=== PATIENT | female | born 1935 | race Caucasian/White ===

== ENCOUNTER → 2017-02-04 | Outpatient (CLI) | payer OTHER, BC | LOC: CIMAGING 14:03 | DX: Z12.31 Encounter for screening mammogram for malignant neoplasm of breast (principal) | CPT/HCPCS: G0202 ==

== ENCOUNTER → 2017-05-30 | Day surgery (SDC) | payer OTHER, BC | END | disposition home or self-care (01) | LOC: FIMAGING 10:45 | PROVIDERS: ATTEND Radiology Diagnostic Radiology | PROC: 02HV33Z Insertion of Infusion Device into Superior Vena Cava, Percutaneous Approach (ICD-10-PCS; principal; 2017-05-30) | DX: N39.0 Urinary tract infection, site not specified (principal); Z79.2 Long term (current) use of antibiotics; A49.9 Bacterial infection, unspecified; Z16.12 Extended spectrum beta lactamase (ESBL) resistance | CPT/HCPCS: 36569; 77001; C1751 ==

== ENCOUNTER 2017-10-02 08:12 | Day surgery (SDC) | payer OTHER, BC ==
[2017-10-02] MEDS ORDERED: DIAZEPAM 5 MG TAB PO ONE (08:13)
[2017-10-02] MEDS ORDERED: NS 1,000 ML IV ONE (08:13)
[2017-10-02] MEDS ORDERED: methylPREDNISolone SOD SUCC 125 MG/2 ML VIAL IVP ONE (08:13)
[2017-10-02] MEDS ORDERED: FAMOTIDINE 20 MG/NACL 50 ML IV ONE (08:13)
[2017-10-02] MEDS ORDERED: ASPIRIN EC 325 MG TAB PO ONE ×2 (08:13→08:18)
[2017-10-02] MEDS ORDERED: EPINEPHrine 1 MG/10 ML SYR IVP ONE (08:16)
[2017-10-02] MEDS ORDERED: methylPREDNISolone SOD SUCC 125 MG/2 ML VIAL ONE (08:16)
[2017-10-02] MEDS ORDERED: FAMOTIDINE 20 MG/NACL/50 ML BAG IV ONE (08:17)
[2017-10-02] MEDS ORDERED: DIAZEPAM 5 MG TAB ONE (08:18)
--- NOTE | 2017-10-02 08:57 | CPEKG ---
Heart Rate: 73 RR Interval: 822 P-R Interval: 196 QRSD Interval: 94 QT Interval: 392 QTC Interval: 432 P [place]: 48 QRS [place]: -10 T Wave [place]: 37 EKG Severity - NORMAL ECG - EKG Impression: SINUS RHYTHM Electronically Signed By: Joe Dennis 02-Oct-2017 17:36:50
[2017-10-02 08:59] LABS: PLATELET COUNT 222 10^3/uL (150-400)
[2017-10-02] MEDS ORDERED: fentaNYL 100 MCG/2 ML INJ ONE (09:09)
[2017-10-02] MEDS ORDERED: IOPAMIDOL (ISOVUE-370) 150 ML BTL IV ONE (09:09)
[2017-10-02] MEDS ORDERED: MIDAZOLAM 2 MG/2 ML VIAL ONE ×2 (09:09→09:11)
[2017-10-02] MEDS ORDERED: LIDOCAINE 1% 300 MG/30 ML SDV ONE (09:09)
[2017-10-02 09:11] LABS: INR 1.02 (0.83-1.16); PROTIME(PATIENT) 13.6 SEC (12.0-15.0)
--- NOTE | 2017-10-02 09:14 | PDPROPOC ---
Sedation Plan of Care Sedation Plan of Care: mental status noted, patient educated of risks, benefits , alternatives, patient can tolerate sedation ASA Classification: ASA 2 Planned drugs: fentanyl, midazolam Mallampati Score: Class 2 Mallampati Reference Image: Patient passed 3-3-2 rule?: Yes
--- NOTE | 2017-10-02 09:14 | PDHPUP ---
History & Physical Update H&P update statement: This history and physical update is based on an assessment of the patient which was completed after admission or registration (within 24 hours), but prior to the surgery/procedure. H&P update: H&P reviewed & patient examined, no change in patient's condition since H&P completed
--- NOTE | 2017-10-02 10:44 | CPIP ---
[f rep st] INVASIVE CARDIAC PROCEDURE DATE OF PROCEDURE: 10/02/2017 INDICATIONS: Shortness of breath. PROCEDURE PERFORMED: 1. Nonselective plus right groin sheathogram. 2. 7-Japanese sheath right common vein. 3. Right heart catheterization. 4. Bilateral selective coronary angiography. 5. Left heart catheterization. 6. Left ventriculogram. 7. Right groin closure 6-Japanese Angio-Seal. HISTORY: Briefly this is an 81-year-old female with history of moderate aortic stenosis, who has bee n complaining of worsening shortness of breath. The patient had a thorough evaluation as an outpatie nt, which did not show any worsening of her moderate aortic stenosis. However, given her symptoms, savita seay decided to proceed with right and left heart catheterization to define her coronary anatomy. DESCRIPTION OF PROCEDURE: After informed consent, the patient was brought to [facility]. The right groin was prepped and draped in sterile fashion. Using lidocaine, a short 6-Japanese webber th, right femoral artery was verified angiographically. A 7-Japanese sheath was placed in the right co mmon vein. Through this 7-Japanese sheath, a right heart catheter was advanced. Wedge pressure was a mean of 21 with A-wave 23, V-wave 29, PA pressure was systolic of 46, diastolic 15 with a mean of 30. RV pressure was 45/7 with an end of 16. RA pressure was 12 with A-wave 15 and V-wave 15. Cardiac output was measured to be 4.1 by Pastor with a cardiac index of 1.9. AO sat was 96%. PA sat was 70%. After these were obtained, the [place]-Liss catheter was removed. A JL4 catheter was then advanced to the left coronary artery. Images of the left coronary artery revealed short left main. Left circumf cris artery appeared to be a left dominant circulation. The circumflex gave off a large marginal marko ry in its midportion, was healthy and free of disease. The LPDA and LPS appeared to be healthy and f ree of disease. The LAD was a long vessel which wrapped around the apex, which had no significant di sease. There was a medium size diagonal artery coming off the midportion of the LAD which had ostial 50% disease. Having been obtained, the JL4 catheter was removed. The JR4 catheter was advanced. T his could not engage in the right coronary system. This was switched out for a Malcom catheter, wh ich then revealed a nondominant right coronary artery with no significant disease. The Malcom cath eter was removed. The pigtail catheter was then advanced into the left ventricle. LVEDP is 15 mmHg. Left ventriculogram obtained in the FAN position showed an EF 65% with no wall motion abnormalities . There is a 20 mm gradient pullback between the LV and the aorta indicating at least mild to modera te aortic stenosis. The pigtail catheter was removed over an 0.035 wire. Right groin was closed usin g 6-Japanese Angio-Seal. The 7-Japanese sheath was removed with manual pressure. Patient tolerated the p rocedure well with no complications. IMPRESSION: 1. 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 2. Nondominant right coronary artery with no disease. 3. Normal ejection fraction. 4. Mild to moderate aortic stenosis with a mean gradient of 20 mmHg. 5. Mild pulmonic hypertension. PLAN: The patient does not have demonstrable significant coronary disease or valvular heart disease to be causing her symptoms. Potentially, an underlying pulmonary etiology may be playing a factor. Savita seay will discharge patient home this morning, have her follow up as an outpatient and potentially shaina quarles a pulmonary evaluation as well. /[id number]/MODL
== END 2017-10-02 13:45 | disposition home or self-care (01) ==
LOC: FCATH 08:12
PROVIDERS: ATTEND Internal Medicine Cardiovascular Disease
DX: I25.10 Atherosclerotic heart disease of native coronary artery without angina pectoris (principal); R06.02 Shortness of breath
CPT/HCPCS: C1760; J1200; J1644; J2250; J2930; J3010; Q9967

== ENCOUNTER → 2017-11-17 | Outpatient (CLI) | payer OTHER, BC | LOC: CIMAGING 15:43 | PROVIDERS: ATTEND Internal Medicine | DX: J40 Bronchitis, not specified as acute or chronic (principal); J98.4 Other disorders of lung | CPT/HCPCS: 71046-PO ==

== ENCOUNTER → 2017-12-02 | Outpatient (CLI) | payer OTHER, BC | LOC: CIMAGING 13:55 | PROVIDERS: ATTEND Internal Medicine | DX: R91.8 Other nonspecific abnormal finding of lung field (principal) | CPT/HCPCS: 71046-PO ==

== ENCOUNTER → 2017-12-17 | Outpatient (CLI) | payer OTHER, BC | LOC: FIMAGING 14:09 | PROVIDERS: ATTEND Internal Medicine | DX: R91.1 Solitary pulmonary nodule (principal); I70.90 Unspecified atherosclerosis ==

== ENCOUNTER → 2018-02-05 | Outpatient (CLI) | payer OTHER, BC | LOC: CIMAGING 14:23 | PROVIDERS: ATTEND Internal Medicine | DX: Z12.31 Encounter for screening mammogram for malignant neoplasm of breast (principal) ==